=== PATIENT | female | born 2000 | race Caucasian/White ===

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

== ENCOUNTER 2019-04-24 22:15 | Emergency (ER) | payer BC, MEDICAID ==
[~2019-04-24] VITALS: Ht 152.4 cm; Wt 58.1 kg
[2019-04-24 22:40] VITALS: Ht 152.4 cm; Wt 58.1 kg
[2019-04-25 00:05] VITALS: BP 116/60
== END 2019-04-25 00:05 | disposition home or self-care (01) ==
LOC: ED 22:15
DX: M51.26 Other intervertebral disc displacement, lumbar region (principal); Z88.1 Allergy status to other antibiotic agents
CPT/HCPCS: J1885